=== PATIENT | female | born 1950 ===

== ENCOUNTER 2022-10-27 14:10 | Inpatient (IN) | payer MEDICARE, BC ==
[~2022-10-27] VITALS: Ht 172.7 cm; Wt 96.8 kg
[2022-10-27 20:30] VITALS: BP 105/42
--- NOTE | 2022-10-27 21:10 | NUR ---
Received pt via josep assisted by 2 filling separator. Alert and oriented x4. On 3LPM via nasal cannula sating at 93%. Has right hip incision covered with dressing. Dressing changed, noted incision to be dry with some bruising. No complaints of pain as of this time. Pt received Dilaudid right before leaving [facility]. Routine admission care done. Plan of care initiated. VS taken and recorded. Safety measures and fall prevention initiated.
[2022-10-27] MEDS ORDERED: LEVO125T PO (22:14)
[2022-10-27] MEDS ORDERED: RANO500T6 PO (22:14)
[2022-10-27] MEDS ORDERED: ALBU2.5V38 IH (22:14)
[2022-10-27] MEDS ORDERED: SENN-18 PO (22:14)
[2022-10-27] MEDS ORDERED: IPRA0.2S48 NEB (22:14)
[2022-10-27] MEDS ORDERED: ATOR80TA PO (22:14)
[2022-10-27] MEDS ORDERED: ENOX40DI SQ (22:14)
[2022-10-27] MEDS ORDERED: LISI40TA13 PO (22:14)
[2022-10-27] MEDS ORDERED: AMLO10TA59 PO (22:14)
[2022-10-27] MEDS ORDERED: ACET325T53 PO (22:14)
[2022-10-27] MEDS ORDERED: BISA10SU61 RC (22:14)
[2022-10-27] MEDS ORDERED: METO200T49 PO (22:14)
[2022-10-27] MEDS ORDERED: VENL150C2 PO (22:14)
[2022-10-27] MEDS ORDERED: SERT25TA PO (22:14)
[2022-10-27] MEDS ORDERED: MAGN400O6 PO (22:14)
[2022-10-27] MEDS ORDERED: DOCU-141 PO (22:14)
[2022-10-27] MEDS ORDERED: HYDR25TA4 PO (22:14)
[2022-10-27] MEDS ORDERED: MAGNESIUM HYDROXIDE 30 ML LIQUID UDC PO PRN (22:45)
[2022-10-27] MEDS ORDERED: SENNOSIDES 1 TABLET PO PRN (22:45)
[2022-10-27] MEDS ORDERED: ACETAMINOPHEN 325 MG TABLET-SA PATIENTS-PAIN ONLY PO PRN (22:45)
[2022-10-27] MEDS ORDERED: ALBUTEROL SULFATE 2.5 MG/3 ML NEBU IH PRN (22:45)
[2022-10-27] MEDS: IPRATROPIUM BROMIDE 0.5 MG/2.5 ML NEBU NEB SCH (23:28)
[2022-10-28] MEDS: IPRATROPIUM BROMIDE 0.5 MG/2.5 ML NEBU NEB SCH (03:37)
[2022-10-28 05:11] VITALS: BP 106/51
[2022-10-28] MEDS: HYDROCODONE/APAP 5-325MG TABLET PO PRN ×2 (05:11→13:59)
[2022-10-28 06:16] LABS: HEMATOCRIT 30.7 % (31.2-41.9); MEAN CORPUSCULAR VOLUME 93.5 fL (75.5-95.3); PLATELET COUNT (AUTO) 213 K/uL (179-408)
[2022-10-28 06:31] LABS: CREATININE 0.7 mg/dL (0.6-1.3); MAGNESIUM 1.8 mg/dL (1.8-2.4); PHOSPHOROUS 4.3 mg/dL (2.5-4.9); POTASSIUM 3.9 mmol/L (3.5-5.1)
[2022-10-28] MEDS: LEVOTHYROXINE SODIUM 125 MCG TABLET PO SCH (07:31)
[2022-10-28 07:56] VITALS: BP 107/54
[2022-10-28] MEDS ORDERED: IPRATROPIUM BROMIDE 0.5 MG/2.5 ML NEBU NEB PRN (08:00)
[2022-10-28] MEDS: LISINOPRIL 20 MG TABLET PO SCH (08:24)
[2022-10-28] MEDS: SERTRALINE HCL 50 MG TABLET PO SCH (08:24)
[2022-10-28] MEDS: RANOLAZINE 500 MG TAB.ER.12H PO SCH ×2 (08:24→16:34)
[2022-10-28] MEDS: METOPROLOL SUCCINATE XL 50 MG TAB.SR.24H PO SCH (08:25)
[2022-10-28] MEDS: HYDROCHLOROTHIAZIDE 25 MG TABLET PO SCH (08:25)
[2022-10-28] MEDS: REMEDY ESSENTIAL ZINC PASTE 113 GM TOP SCH ×2 (08:26→20:27)
[2022-10-28] MEDS: ENOXAPARIN SODIUM 40 MG/0.4 ML DISP.SYRIN SQ SCH (08:28)
[2022-10-28] MEDS: AMLODIPINE 10 MG TABLET PO SCH (08:32)
[2022-10-28] MEDS: HYDROMORPHONE 1 MG/1 ML DISP.SYRIN IV PRN ×3 (08:58→20:23)
[2022-10-28] MEDS ORDERED: VENLAFAXINE XR 150 MG CAP.SR.24H PO SCH (09:00)
[2022-10-28] MEDS ORDERED: ISOS30TA86 PO (10:17)
[2022-10-28] MEDS ORDERED: ASPI81TA31 PO (10:17)
[2022-10-28] MEDS ORDERED: FLUT1BLS IH (10:17)
[2022-10-28] MEDS ORDERED: METF-442 PO (10:22)
[2022-10-28] MEDS ORDERED: VENL75CA62 PO (10:24)
[2022-10-28] MEDS: VENLAFAXINE XR 150 MG CAP.SR.24H PO SCH (15:05)
--- NOTE | 2022-10-28 15:17 | NUR ---
0730-Upon shift exchange round, patient in bed, oxygen via nc, no respiratory distress/SOB, awake; A/Ox4. Patient verbally communicative/follows directions. Pure-Week device in place. Encouraged patient to use call light for help. 0900-Scheduled medications administered with no ASE noted; fresh ice water pitcher provided. Call light at reach.
--- NOTE | 2022-10-28 15:55 | NUR ---
1245-Routine rounds done and diaper changed, perineal care provided; handled patient gently and carefully. Abductor pillow in place. RT hip surgical site with DD in place. Repositioned patient to promote comfort and facilitate pressure relief. Patient tolerated well procedure. Call light at reach, encouraged to use it for help every time needed.
[2022-10-28 16:33] VITALS: BP 128/66
--- NOTE | 2022-10-28 17:58 | NUR ---
1600-Routine rounds done, (along with SNUFF PACKING MACHINE OPERATOR) patient bypassed pure-week and with wet, care provided (daughter at bedside) handled patient gently and carefully during care. Treatment to right hip ORIF surgical site done, affected area with no s/s of infection or active bleeding noted. Patient tolerated well procedure, repositioned for comfort and pressure relief, abductor pillow in place. Pure-week device repositioned properly/functioning properly. Both patient and daughter sounded very appreciative with the care, stating "thank you so much" several times. Call light at reach. Encouraged patient to use it every time help is needed. 1630-Opened a new IV line to LT hand G 22" due to current IV to RT AC not functioning properly. Procedure explained prior insertion. Aseptic tech. applied, patient jaimee. well. with no c/o pain. IV line flushed well and secured with clear tape. (daughter at bedside) polite as she expresses "thanks" to nursing staff repetitively.
[2022-10-28 20:00] VITALS: BP 127/66
[2022-10-28] MEDS: ATORVASTATIN 40 MG TABLET PO SCH (20:26)
[2022-10-28] MEDS ORDERED: BISACODYL 10 MG SUPP.RECT RC PRN (21:00)
[2022-10-28] MEDS ORDERED: BISACODYL 10 MG SUPP.RECT RC SCH (21:00)
[2022-10-29] MEDS: HYDROMORPHONE 1 MG/1 ML DISP.SYRIN IV PRN ×3 (01:32→13:40)
[2022-10-29 04:00] VITALS: BP 145/64
--- NOTE | 2022-10-29 04:54 | NUR ---
AAOx4 S/P right ORIF right hip. Right hip dressing intact with sutures in placed. Pain meds given via left arm heplock. Relief noted. All needs attended. Kept comfotable. Purewick to suction, anne colored urine noted. Will monitor patient. Abduction pillow in placed. VSS.
[2022-10-29] MEDS: LEVOTHYROXINE SODIUM 125 MCG TABLET PO SCH (06:21)
[2022-10-29 07:39] VITALS: BP 133/59
[2022-10-29] MEDS: HYDROCHLOROTHIAZIDE 25 MG TABLET PO SCH (08:50)
[2022-10-29] MEDS: LISINOPRIL 20 MG TABLET PO SCH (08:50)
[2022-10-29] MEDS: METOPROLOL SUCCINATE XL 50 MG TAB.SR.24H PO SCH (08:50)
[2022-10-29] MEDS: SERTRALINE HCL 50 MG TABLET PO SCH (08:51)
[2022-10-29] MEDS: AMLODIPINE 10 MG TABLET PO SCH (08:51)
[2022-10-29] MEDS: ENOXAPARIN SODIUM 40 MG/0.4 ML DISP.SYRIN SQ SCH (08:58)
[2022-10-29] MEDS: VENLAFAXINE XR 150 MG CAP.SR.24H PO SCH (08:59)
[2022-10-29] MEDS: GLUCERNA SHAKE 237 ML CAN PO SCH ×2 (09:00→09:04)
[2022-10-29] MEDS: REMEDY ESSENTIAL ZINC PASTE 113 GM TOP SCH ×2 (09:04→20:02)
[2022-10-29] MEDS: RANOLAZINE 500 MG TAB.ER.12H PO SCH ×2 (09:04→16:03)
[2022-10-29 16:00] VITALS: BP 107/59
[2022-10-29] MEDS: HYDROCODONE/APAP 5-325MG TABLET PO PRN (19:19)
[2022-10-29] MEDS: ATORVASTATIN 40 MG TABLET PO SCH (20:02)
[2022-10-29 20:33] VITALS: BP 122/52
[2022-10-30 04:20] VITALS: BP 130/66
[2022-10-30] MEDS: HYDROCODONE/APAP 5-325MG TABLET PO PRN ×2 (04:47→20:47)
--- NOTE | 2022-10-30 04:51 | NUR ---
patient is alert, oriented x3, with episodes of forgetful, no sob, respirations are even nonlabored, skin warm and dry to touch, this telegraphic typewriter operator had a conversation with patient and daughter at bedside about IV push Dilaudid that dr cervantes changed the orders from IV push Dilaudid to po oxy ir and norco break through pain. patient and daughter agreed. patient requested norco after dinner, administered, and requested to be given at 0130 as well. checked on patient at 0130, patient was sound asleep that time. patient woke up around 0430 and requested pain medication, Effie administered. patient stated she wants to talk to doctor whoever changed her pain medication, will endorse to next shift.
[2022-10-30] MEDS: LEVOTHYROXINE SODIUM 125 MCG TABLET PO SCH (06:04)
[2022-10-30 08:30] VITALS: BP 137/78
[2022-10-30] MEDS: REMEDY ESSENTIAL ZINC PASTE 113 GM TOP SCH ×2 (09:00→20:56)
[2022-10-30] MEDS: VENLAFAXINE XR 150 MG CAP.SR.24H PO SCH (09:59)
[2022-10-30] MEDS: AMLODIPINE 10 MG TABLET PO SCH (10:00)
[2022-10-30] MEDS: METOPROLOL SUCCINATE XL 50 MG TAB.SR.24H PO SCH (10:00)
[2022-10-30] MEDS: LISINOPRIL 20 MG TABLET PO SCH (10:01)
[2022-10-30] MEDS: HYDROCHLOROTHIAZIDE 25 MG TABLET PO SCH (10:02)
[2022-10-30] MEDS: OXYCODONE HCL 5 MG TABLET PO SCH ×2 (10:02→17:52)
[2022-10-30] MEDS: SERTRALINE HCL 50 MG TABLET PO SCH (10:03)
[2022-10-30] MEDS: RANOLAZINE 500 MG TAB.ER.12H PO SCH ×2 (10:04→17:53)
[2022-10-30] MEDS: ENOXAPARIN SODIUM 40 MG/0.4 ML DISP.SYRIN SQ SCH (10:18)
--- NOTE | 2022-10-30 14:49 | NUR ---
INDIVIDUALIZED PLAN OF CARE
[2022-10-30 15:51] VITALS: BP 92/45
--- NOTE | 2022-10-30 19:13 | NUR ---
Pt received asleep in bed no distress and when awakes able to eat meals work with therapy and ambulate around the hallway. Pt had a shower today rt hip dressing done. Pt did not requested break through PRN medication.Pt verbalized that she think the night nurse did not gave her, her right pain medication dose. Continue monitoring her condition. Pt's daughter visited and update with plan of care. Endorse care to incoming nurse
[2022-10-30] MEDS: ATORVASTATIN 40 MG TABLET PO SCH (20:41)
[2022-10-31 04:00] VITALS: BP 108/57
[2022-10-31] MEDS: LEVOTHYROXINE SODIUM 125 MCG TABLET PO SCH (06:33)
[2022-10-31] MEDS: HYDROCODONE/APAP 5-325MG TABLET PO PRN (06:39)
[2022-10-31 08:10] VITALS: BP 123/66
[2022-10-31] MEDS: RANOLAZINE 500 MG TAB.ER.12H PO SCH ×2 (09:29→17:41)
[2022-10-31] MEDS: OXYCODONE HCL 5 MG TABLET PO SCH (09:30)
[2022-10-31] MEDS: METOPROLOL SUCCINATE XL 50 MG TAB.SR.24H PO SCH (09:31)
[2022-10-31] MEDS: HYDROCHLOROTHIAZIDE 25 MG TABLET PO SCH (09:31)
[2022-10-31] MEDS: GLUCERNA SHAKE 237 ML CAN PO SCH (09:32)
[2022-10-31] MEDS: AMLODIPINE 10 MG TABLET PO SCH (09:33)
[2022-10-31] MEDS: LISINOPRIL 20 MG TABLET PO SCH (09:33)
[2022-10-31] MEDS: VENLAFAXINE XR 150 MG CAP.SR.24H PO SCH (09:33)
[2022-10-31] MEDS: SERTRALINE HCL 50 MG TABLET PO SCH (09:41)
[2022-10-31] MEDS: ENOXAPARIN SODIUM 40 MG/0.4 ML DISP.SYRIN SQ SCH (09:41)
[2022-10-31] MEDS: REMEDY ESSENTIAL ZINC PASTE 113 GM TOP SCH ×2 (09:42→20:33)
[2022-10-31 15:12] VITALS: BP 112/61
--- NOTE | 2022-10-31 15:50 | NUR ---
Pt c/o constipation. Lest BM noted on 10/29. Offered pt prune juice. Pt accepted. Will continue to monitor and endorse.
[2022-10-31] MEDS: OXYCODONE HCL 20 MG TAB.SR.12H PO SCH (18:00)
[2022-10-31 20:00] VITALS: BP 113/53
[2022-10-31] MEDS: DOCUSATE SODIUM 100 MG CAPSULE PO PRN (20:51)
[2022-10-31] MEDS: ATORVASTATIN 40 MG TABLET PO SCH (20:51)
[2022-10-31] MEDS: HYDROCODONE/APAP 10-325 MG TABLET PO PRN (20:52)
[2022-11-01 04:00] VITALS: BP 107/55
[2022-11-01] MEDS: ACETAMINOPHEN 325 MG TABLET PO PRN (04:34)
[2022-11-01] MEDS: LEVOTHYROXINE SODIUM 125 MCG TABLET PO SCH (06:06)
--- NOTE | 2022-11-01 07:46 | NUR ---
RN NOTE: Pt was given [place] and [place] at bedtime after verbalizing constipation and pain to rt hip. Pt slept through most of the night. Pt requested Tylenol this AM. Endorse care to incoming nurse
[2022-11-01 07:50] VITALS: BP 110/53
[2022-11-01] MEDS: OXYCODONE HCL 20 MG TAB.SR.12H PO SCH ×2 (08:18→16:46)
[2022-11-01] MEDS: RANOLAZINE 500 MG TAB.ER.12H PO SCH ×2 (08:18→16:46)
[2022-11-01] MEDS: DOCUSATE SODIUM 100 MG CAPSULE PO PRN (08:18)
[2022-11-01] MEDS: SERTRALINE HCL 50 MG TABLET PO SCH (08:19)
[2022-11-01] MEDS: LISINOPRIL 20 MG TABLET PO SCH (08:19)
[2022-11-01] MEDS: METOPROLOL SUCCINATE XL 50 MG TAB.SR.24H PO SCH (08:19)
[2022-11-01] MEDS: HYDROCHLOROTHIAZIDE 25 MG TABLET PO SCH (08:20)
[2022-11-01] MEDS: AMLODIPINE 10 MG TABLET PO SCH (08:20)
[2022-11-01] MEDS: GLUCERNA SHAKE 237 ML CAN PO SCH (08:21)
[2022-11-01] MEDS: VENLAFAXINE XR 150 MG CAP.SR.24H PO SCH (08:22)
[2022-11-01] MEDS: REMEDY ESSENTIAL ZINC PASTE 113 GM TOP SCH ×2 (08:22→21:12)
[2022-11-01] MEDS: ENOXAPARIN SODIUM 40 MG/0.4 ML DISP.SYRIN SQ SCH (08:28)
[2022-11-01 15:11] VITALS: BP 121/83
--- NOTE | 2022-11-01 18:24 | NUR ---
patient is alert, awake, forgetfull, no sob, respirations are even nonlabored, skin warm and dry to touch, pain is well managed with pain medications, no events noted.
[2022-11-01 20:00] VITALS: BP 107/54
[2022-11-01] MEDS: ATORVASTATIN 40 MG TABLET PO SCH (21:12)
[2022-11-02] MEDS: HYDROCODONE/APAP 10-325 MG TABLET PO PRN (01:44)
--- NOTE | 2022-11-02 03:53 | NUR ---
AAOx3-4 forgetful at times. Patient S/P right total hip arthroplasty. Right incision intact with dressing in placed. Medicated for pain as needed. Ambulates to the BR with walker with supervision. Continent of bowel and bladder. No BM noted this shift. Fall precautions maintained. Siderails up for safety. Will monitor patient. On 3L via nasal cannula. pulse ox 95%. Compliant with meds.VSS.
[2022-11-02 04:00] VITALS: BP 115/61
[2022-11-02] MEDS: LEVOTHYROXINE SODIUM 125 MCG TABLET PO SCH (06:19)
[2022-11-02 07:41] LABS: HEMATOCRIT 31.1 % (31.2-41.9); MEAN CORPUSCULAR HEMOGLOBIN 31.7 uug (24.7-32.8); MEAN CORPUSCULAR VOLUME 93.9 fL (75.5-95.3); PLATELET COUNT (AUTO) 437 K/uL (179-408)
[2022-11-02 07:52] VITALS: BP 135/62
[2022-11-02 08:43] LABS: THYROID STIMULATING HORMONE 3.233 mIU/mL (0.358-3.740)
[2022-11-02] MEDS: METOPROLOL SUCCINATE XL 50 MG TAB.SR.24H PO SCH (09:30)
[2022-11-02] MEDS: GLUCERNA SHAKE 237 ML CAN PO SCH (09:31)
[2022-11-02] MEDS: RANOLAZINE 500 MG TAB.ER.12H PO SCH ×2 (09:31→17:24)
[2022-11-02] MEDS: SERTRALINE HCL 50 MG TABLET PO SCH (09:31)
[2022-11-02] MEDS: AMLODIPINE 10 MG TABLET PO SCH (09:31)
[2022-11-02] MEDS: HYDROCHLOROTHIAZIDE 25 MG TABLET PO SCH (09:31)
[2022-11-02] MEDS: LISINOPRIL 20 MG TABLET PO SCH (09:32)
[2022-11-02] MEDS: ENOXAPARIN SODIUM 40 MG/0.4 ML DISP.SYRIN SQ SCH (09:33)
[2022-11-02] MEDS: REMEDY ESSENTIAL ZINC PASTE 113 GM TOP SCH ×2 (09:34→20:50)
[2022-11-02] MEDS: VENLAFAXINE XR 150 MG CAP.SR.24H PO SCH (09:37)
[2022-11-02] MEDS: OXYCODONE HCL 20 MG TAB.SR.12H PO SCH ×2 (09:44→17:30)
[2022-11-02 10:39] LABS: IRON, SERUM 35 ug/dL (50-175)
[2022-11-02 11:02] LABS: ALANINE AMINOTRANSFERASE 47 U/L (14-59); ALKALINE PHOSPHATASE 89 U/L (50-136); ASPARTATE AMINOTRANSFERASE 18 U/L (15-37); BILIRUBIN,TOTAL 0.7 mg/dL (0.2-1.0); CARBON DIOXIDE 31 mmol/L (21-32); CHLORIDE 100 mmol/L (98-107); CHOLESTEROL 148 mg/dL (<200); CREATININE 0.7 mg/dL (0.6-1.3); GLUCOSE 108 mg/dL (74-106); PHOSPHOROUS 4.6 mg/dL (2.5-4.9); POTASSIUM 4.1 mmol/L (3.5-5.1); TOTAL PROTEIN, SERUM 6.3 g/dL (6.4-8.2); TRIGLYCERIDES 110 MG/DL (30-150); UREA NITROGEN, BLOOD 12 mg/dL (7-18)
[2022-11-02 12:19] LABS: HDL CHOLESTEROL 36 mg/dL (40-60)
--- NOTE | 2022-11-02 14:35 | NUR ---
INTERDISCIPLINARY TEAM CONFERENCE
--- NOTE | 2022-11-02 14:37 | NUR ---
INTERDISCIPLINARY TEAM CONFERENCE
[2022-11-02 15:50] VITALS: BP 96/46
[2022-11-02 19:59] VITALS: BP 100/53
[2022-11-02] MEDS: ATORVASTATIN 40 MG TABLET PO SCH (20:49)
[2022-11-03 04:49] VITALS: BP 112/56
--- NOTE | 2022-11-03 04:59 | NUR ---
Condition unchanged. AAOx4 All needs attended. Fall risk noted. All due meds given Will monitor patient. Medicated for pain as needed with relief noted. VSS On 3 L via nasal cannula, pulse ox 95% No SOB nor any respiratory distress noted. Kept comfortable.
[2022-11-03] MEDS: HYDROCODONE/APAP 10-325 MG TABLET PO PRN (05:23)
[2022-11-03] MEDS: LEVOTHYROXINE SODIUM 125 MCG TABLET PO SCH (06:06)
[2022-11-03 08:00] VITALS: BP 104/61
[2022-11-03] MEDS: LISINOPRIL 20 MG TABLET PO SCH (08:22)
[2022-11-03] MEDS: OXYCODONE HCL 20 MG TAB.SR.12H PO SCH ×2 (08:23→16:47)
[2022-11-03] MEDS: METOPROLOL SUCCINATE XL 50 MG TAB.SR.24H PO SCH (08:23)
[2022-11-03] MEDS: SERTRALINE HCL 50 MG TABLET PO SCH (08:23)
[2022-11-03] MEDS: RANOLAZINE 500 MG TAB.ER.12H PO SCH ×2 (08:23→16:47)
[2022-11-03] MEDS: HYDROCHLOROTHIAZIDE 25 MG TABLET PO SCH (08:23)
[2022-11-03] MEDS: AMLODIPINE 10 MG TABLET PO SCH (08:23)
[2022-11-03] MEDS: REMEDY ESSENTIAL ZINC PASTE 113 GM TOP SCH ×2 (08:24→20:24)
[2022-11-03] MEDS: ENOXAPARIN SODIUM 40 MG/0.4 ML DISP.SYRIN SQ SCH (08:24)
[2022-11-03] MEDS: VENLAFAXINE XR 150 MG CAP.SR.24H PO SCH (08:31)
[2022-11-03] MEDS: GLUCERNA SHAKE 237 ML CAN PO SCH (09:01)
[2022-11-03] MEDS: CYANOCOBALAMIN 1000 MCG/ML VIAL IM SCH (09:51)
--- NOTE | 2022-11-03 10:19 | NUR ---
dressing change per md orders,no discharge noted
[2022-11-03] MEDS: levoFLOXacin 500 MG TABLET PO SCH (15:26)
[2022-11-03] MEDS: FLUTICASONE/VILANTEROL 1 EACH BLST.W.DEV INH SCH (15:32)
[2022-11-03 15:40] VITALS: BP 117/59
[2022-11-03 20:00] VITALS: BP 109/54
[2022-11-03] MEDS: ATORVASTATIN 40 MG TABLET PO SCH (20:24)
[2022-11-04] MEDS: HYDROCODONE/APAP 10-325 MG TABLET PO PRN (01:09)
[2022-11-04 04:00] VITALS: BP 127/55
--- NOTE | 2022-11-04 04:40 | NUR ---
Awake alert and oriented x4. All needs attended and met. No acute distress noted. Will monitor patient. Kept comfortable. VSS. Ambulates to the BR with walker. Continent of bowel and bladder. No further complaints presented during the shift.
[2022-11-04] MEDS: LEVOTHYROXINE SODIUM 125 MCG TABLET PO SCH (06:08)
[2022-11-04 07:46] VITALS: BP 144/78
[2022-11-04] MEDS: FLUTICASONE/VILANTEROL 1 EACH BLST.W.DEV INH SCH (08:25)
[2022-11-04] MEDS: VENLAFAXINE XR 150 MG CAP.SR.24H PO SCH (08:25)
[2022-11-04] MEDS: LISINOPRIL 20 MG TABLET PO SCH (08:25)
[2022-11-04] MEDS: CYANOCOBALAMIN 1000 MCG/ML VIAL IM SCH (08:25)
[2022-11-04] MEDS: SERTRALINE HCL 50 MG TABLET PO SCH (08:25)
[2022-11-04] MEDS: METOPROLOL SUCCINATE XL 50 MG TAB.SR.24H PO SCH (08:25)
[2022-11-04] MEDS: RANOLAZINE 500 MG TAB.ER.12H PO SCH ×2 (08:25→16:16)
[2022-11-04] MEDS: HYDROCHLOROTHIAZIDE 25 MG TABLET PO SCH (08:26)
[2022-11-04] MEDS: OXYCODONE HCL 20 MG TAB.SR.12H PO SCH ×2 (08:26→16:16)
[2022-11-04] MEDS: AMLODIPINE 10 MG TABLET PO SCH (08:26)
[2022-11-04] MEDS: REMEDY ESSENTIAL ZINC PASTE 113 GM TOP SCH ×2 (08:27→20:23)
[2022-11-04] MEDS: ENOXAPARIN SODIUM 40 MG/0.4 ML DISP.SYRIN SQ SCH (08:27)
[2022-11-04] MEDS: GLUCERNA SHAKE 237 ML CAN PO SCH (08:33)
[2022-11-04] MEDS: levoFLOXacin 500 MG TABLET PO SCH (14:04)
[2022-11-04 16:16] VITALS: BP 108/72
[2022-11-04 20:15] VITALS: BP 112/40
[2022-11-04] MEDS: ATORVASTATIN 40 MG TABLET PO SCH (20:23)
[2022-11-05 04:20] VITALS: BP 119/75
[2022-11-05] MEDS: LEVOTHYROXINE SODIUM 125 MCG TABLET PO SCH (05:48)
--- NOTE | 2022-11-05 06:22 | NUR ---
Uneventful night. Slept good, no complaint of pain/discomforts presented. All needs attended and met. Vs stable. Continue current rehab plan of care.
--- NOTE | 2022-11-05 06:53 | NUR ---
patient in her room, awake at this time with no S/S of discomforts noted, fall and safety precautions implemented. will continue to monitor. call light with in reach
[2022-11-05 08:07] VITALS: BP 144/60
[2022-11-05] MEDS: CYANOCOBALAMIN 1000 MCG/ML VIAL IM SCH (08:12)
[2022-11-05] MEDS: METOPROLOL SUCCINATE XL 50 MG TAB.SR.24H PO SCH (08:13)
[2022-11-05] MEDS: RANOLAZINE 500 MG TAB.ER.12H PO SCH ×2 (08:13→16:23)
[2022-11-05] MEDS: LISINOPRIL 20 MG TABLET PO SCH (08:13)
[2022-11-05] MEDS: SERTRALINE HCL 50 MG TABLET PO SCH (08:13)
[2022-11-05] MEDS: AMLODIPINE 10 MG TABLET PO SCH (08:13)
[2022-11-05] MEDS: VENLAFAXINE XR 150 MG CAP.SR.24H PO SCH (08:13)
[2022-11-05] MEDS: HYDROCHLOROTHIAZIDE 25 MG TABLET PO SCH (08:13)
[2022-11-05] MEDS: ENOXAPARIN SODIUM 40 MG/0.4 ML DISP.SYRIN SQ SCH (08:14)
[2022-11-05] MEDS: OXYCODONE HCL 20 MG TAB.SR.12H PO SCH ×2 (08:14→16:23)
[2022-11-05] MEDS: FLUTICASONE/VILANTEROL 1 EACH BLST.W.DEV INH SCH (08:14)
[2022-11-05] MEDS: GLUCERNA SHAKE 237 ML CAN PO SCH (08:18)
[2022-11-05] MEDS: REMEDY ESSENTIAL ZINC PASTE 113 GM TOP SCH ×2 (08:37→20:11)
[2022-11-05] MEDS: levoFLOXacin 500 MG TABLET PO SCH (14:01)
--- NOTE | 2022-11-05 15:42 | NUR ---
Seen by physical therapist, ambulated using FWW as tolerated
[2022-11-05 16:44] VITALS: BP 103/60
[2022-11-05] MEDS: ATORVASTATIN 40 MG TABLET PO SCH (20:11)
[2022-11-05 20:25] VITALS: BP 125/65
[2022-11-06] MEDS: HYDROCODONE/APAP 10-325 MG TABLET PO PRN (02:42)
[2022-11-06 04:20] VITALS: BP 128/57
[2022-11-06] MEDS: LEVOTHYROXINE SODIUM 125 MCG TABLET PO SCH (05:57)
--- NOTE | 2022-11-06 07:05 | NUR ---
patient in her room, lying in bed sleeping at this time with no S/S of discomforts noted, fall and safety precautions implemented. will continue to monitor.
[2022-11-06] MEDS: SERTRALINE HCL 50 MG TABLET PO SCH (08:04)
[2022-11-06] MEDS: HYDROCHLOROTHIAZIDE 25 MG TABLET PO SCH (08:04)
[2022-11-06] MEDS: CYANOCOBALAMIN 1000 MCG/ML VIAL IM SCH (08:04)
[2022-11-06] MEDS: RANOLAZINE 500 MG TAB.ER.12H PO SCH ×2 (08:04→16:42)
[2022-11-06] MEDS: METOPROLOL SUCCINATE XL 50 MG TAB.SR.24H PO SCH (08:05)
[2022-11-06] MEDS: LISINOPRIL 20 MG TABLET PO SCH (08:05)
[2022-11-06] MEDS: AMLODIPINE 10 MG TABLET PO SCH (08:05)
[2022-11-06] MEDS: ENOXAPARIN SODIUM 40 MG/0.4 ML DISP.SYRIN SQ SCH (08:06)
[2022-11-06] MEDS: FLUTICASONE/VILANTEROL 1 EACH BLST.W.DEV INH SCH (08:06)
[2022-11-06] MEDS: VENLAFAXINE XR 150 MG CAP.SR.24H PO SCH (08:06)
[2022-11-06 08:35] VITALS: BP 124/80
[2022-11-06] MEDS: GLUCERNA SHAKE 237 ML CAN PO SCH (09:18)
[2022-11-06] MEDS: REMEDY ESSENTIAL ZINC PASTE 113 GM TOP SCH ×2 (09:18→20:02)
[2022-11-06] MEDS: OXYCODONE HCL 20 MG TAB.SR.12H PO SCH ×2 (09:20→16:28)
[2022-11-06] MEDS: levoFLOXacin 500 MG TABLET PO SCH (14:20)
[2022-11-06 16:04] VITALS: BP 105/53
[2022-11-06] MEDS: ATORVASTATIN 40 MG TABLET PO SCH (20:02)
[2022-11-06 20:34] VITALS: BP 102/48
[2022-11-07 04:34] VITALS: BP 135/68
[2022-11-07] MEDS: LEVOTHYROXINE SODIUM 125 MCG TABLET PO SCH (06:06)
--- NOTE | 2022-11-07 06:14 | NUR ---
No significant event reported all night. No complaint of pain/discomforts. All needs attended and met. Continue current rehab plan of care.
[2022-11-07] MEDS: RANOLAZINE 500 MG TAB.ER.12H PO SCH ×2 (08:21→16:15)
[2022-11-07] MEDS: HYDROCHLOROTHIAZIDE 25 MG TABLET PO SCH (08:21)
[2022-11-07] MEDS: LISINOPRIL 20 MG TABLET PO SCH (08:21)
[2022-11-07] MEDS: VENLAFAXINE XR 150 MG CAP.SR.24H PO SCH (08:22)
[2022-11-07] MEDS: SERTRALINE HCL 50 MG TABLET PO SCH (08:22)
[2022-11-07] MEDS: AMLODIPINE 10 MG TABLET PO SCH (08:22)
[2022-11-07] MEDS: METOPROLOL SUCCINATE XL 50 MG TAB.SR.24H PO SCH (08:22)
[2022-11-07] MEDS: ENOXAPARIN SODIUM 40 MG/0.4 ML DISP.SYRIN SQ SCH (08:23)
[2022-11-07] MEDS: FLUTICASONE/VILANTEROL 1 EACH BLST.W.DEV INH SCH (08:23)
[2022-11-07] MEDS: GLUCERNA SHAKE 237 ML CAN PO SCH (08:23)
[2022-11-07] MEDS: OXYCODONE HCL 20 MG TAB.SR.12H PO SCH ×2 (08:23→16:07)
[2022-11-07] MEDS: REMEDY ESSENTIAL ZINC PASTE 113 GM TOP SCH ×2 (08:24→20:53)
[2022-11-07 08:29] VITALS: BP 133/63
--- NOTE | 2022-11-07 10:00 | NUR ---
Seen by physical therapist, ambulated using FWW as tolerated
[2022-11-07] MEDS: ACETAMINOPHEN 325 MG TABLET PO PRN (10:05)
[2022-11-07] MEDS: levoFLOXacin 500 MG TABLET PO SCH (14:06)
[2022-11-07 15:49] VITALS: BP 117/64
[2022-11-07 20:36] VITALS: BP 105/49
[2022-11-07] MEDS: ATORVASTATIN 40 MG TABLET PO SCH (20:53)
[2022-11-08] MEDS: HYDROCODONE/APAP 10-325 MG TABLET PO PRN ×2 (00:17→23:08)
[2022-11-08 04:05] VITALS: BP 139/65
[2022-11-08] MEDS: LEVOTHYROXINE SODIUM 125 MCG TABLET PO SCH (06:00)
--- NOTE | 2022-11-08 06:29 | NUR ---
Medicated with [place] for pain scale of 6/10 after using the bathroom. No further complaint presented. Slept good after that. Continue current rehab plan of care.
[2022-11-08 07:46] VITALS: BP 109/61
[2022-11-08] MEDS: SERTRALINE HCL 50 MG TABLET PO SCH (08:06)
[2022-11-08] MEDS: FLUTICASONE/VILANTEROL 1 EACH BLST.W.DEV INH SCH (08:06)
[2022-11-08] MEDS: RANOLAZINE 500 MG TAB.ER.12H PO SCH ×2 (08:06→16:15)
[2022-11-08] MEDS: LISINOPRIL 20 MG TABLET PO SCH (08:06)
[2022-11-08] MEDS: OXYCODONE HCL 20 MG TAB.SR.12H PO SCH ×2 (08:06→16:15)
[2022-11-08] MEDS: AMLODIPINE 10 MG TABLET PO SCH (08:07)
[2022-11-08] MEDS: METOPROLOL SUCCINATE XL 50 MG TAB.SR.24H PO SCH (08:07)
[2022-11-08] MEDS: VENLAFAXINE XR 150 MG CAP.SR.24H PO SCH (08:07)
[2022-11-08] MEDS: GLUCERNA SHAKE 237 ML CAN PO SCH (08:07)
[2022-11-08] MEDS: HYDROCHLOROTHIAZIDE 25 MG TABLET PO SCH (08:07)
[2022-11-08] MEDS: ENOXAPARIN SODIUM 40 MG/0.4 ML DISP.SYRIN SQ SCH (08:11)
[2022-11-08] MEDS: REMEDY ESSENTIAL ZINC PASTE 113 GM TOP SCH ×2 (08:12→20:00)
[2022-11-08] MEDS: ACETAMINOPHEN 325 MG TABLET PO PRN (09:27)
--- NOTE | 2022-11-08 09:30 | NUR ---
Seen by physical therapist, ambulated using FWW as tolerated
[2022-11-08] MEDS: levoFLOXacin 500 MG TABLET PO SCH (14:40)
[2022-11-08 15:36] VITALS: BP 100/55
[2022-11-08] MEDS: ATORVASTATIN 40 MG TABLET PO SCH (20:00)
[2022-11-08 20:47] VITALS: BP 115/55
--- NOTE | 2022-11-08 21:16 | NUR ---
in room watching tv no c/o pain noted tahe her medication call light with in reach
--- NOTE | 2022-11-08 23:08 | NUR ---
Medicated with [place] for pain scale of 8/10 . No further complaint presented. call light with in reach
--- NOTE | 2022-11-09 01:54 | NUR ---
Sleeping, appears comfortable
[2022-11-09 04:00] VITALS: BP 110/69
[2022-11-09] MEDS: LEVOTHYROXINE SODIUM 125 MCG TABLET PO SCH (06:01)
--- NOTE | 2022-11-09 06:27 | NUR ---
No significant event reported all night. All needs attended and met. Continue current rehab plan of care.
[2022-11-09 08:00] VITALS: BP 119/67
[2022-11-09] MEDS: ENOXAPARIN SODIUM 40 MG/0.4 ML DISP.SYRIN SQ SCH (09:05)
[2022-11-09] MEDS: LISINOPRIL 20 MG TABLET PO SCH (09:08)
[2022-11-09] MEDS: SERTRALINE HCL 50 MG TABLET PO SCH (09:09)
[2022-11-09] MEDS: METOPROLOL SUCCINATE XL 50 MG TAB.SR.24H PO SCH (09:11)
[2022-11-09] MEDS: AMLODIPINE 10 MG TABLET PO SCH (09:12)
[2022-11-09] MEDS: OXYCODONE HCL 20 MG TAB.SR.12H PO SCH ×2 (09:13→17:27)
[2022-11-09] MEDS: HYDROCHLOROTHIAZIDE 25 MG TABLET PO SCH (09:13)
[2022-11-09] MEDS: VENLAFAXINE XR 150 MG CAP.SR.24H PO SCH (09:14)
[2022-11-09] MEDS: RANOLAZINE 500 MG TAB.ER.12H PO SCH ×2 (09:14→17:27)
[2022-11-09] MEDS: GLUCERNA SHAKE 237 ML CAN PO SCH (09:15)
[2022-11-09] MEDS: FLUTICASONE/VILANTEROL 1 EACH BLST.W.DEV INH SCH (09:16)
[2022-11-09] MEDS: REMEDY ESSENTIAL ZINC PASTE 113 GM TOP SCH ×2 (09:28→20:24)
--- NOTE | 2022-11-09 11:21 | NUR ---
INTERDISCIPLINARY TEAM CONFERENCE
[2022-11-09] MEDS: levoFLOXacin 500 MG TABLET PO SCH (14:54)
[2022-11-09 16:00] VITALS: BP 107/55
[2022-11-09 19:41] VITALS: BP 107/48
--- NOTE | 2022-11-09 19:51 | NUR ---
RECEIVED REPORT FROM [facility] SADDLE TREE STITCHER. PATIENT IS ALERT AND ORIENTED X4 AND SPEAKS CROATIAN. VITAL SIGNS STABLE. PATIENT TOLERATES PO MEDICATIONS AND DIET WELL. PATIENT HAD COMPLAINT OF PAIN. RN GAVE MEDICATIONS ORDERED. PATIENT EXPRESSES RELIEF. PATIENT PARTICIPATES WITH PHYSICAL AND OCCUPATIONAL THERAPY SCHEDULED. MD REQUEST RN TO REMOVE DRESSING. DRESSING OPEN TO AIR. PATIENT'S FAMILY VISITED. NO ACUTE DISTRESS NOTED. CALL LIGHT WITHIN REACH. FALL PRECAUTIONS OBSERVED. RN ENDORSED CARE TO [facility] N[facility] FOR CONTINUATION OF CARE.
[2022-11-09] MEDS: ATORVASTATIN 40 MG TABLET PO SCH (20:03)
--- NOTE | 2022-11-09 23:29 | NUR ---
Sleeping, appears comfortable
[2022-11-10 04:17] VITALS: BP 97/56
[2022-11-10] MEDS: LEVOTHYROXINE SODIUM 125 MCG TABLET PO SCH (06:02)
--- NOTE | 2022-11-10 06:16 | NUR ---
No significant event reported all night. All needs attended and met. Continue current rehab plan of care.
[2022-11-10 08:00] VITALS: BP 114/64
[2022-11-10] MEDS: FLUTICASONE/VILANTEROL 1 EACH BLST.W.DEV INH SCH (09:00)
[2022-11-10] MEDS: REMEDY ESSENTIAL ZINC PASTE 113 GM TOP SCH (09:00)
[2022-11-10] MEDS: AMLODIPINE 10 MG TABLET PO SCH (09:00)
[2022-11-10] MEDS: GLUCERNA SHAKE 237 ML CAN PO SCH (09:00)
[2022-11-10] MEDS: VENLAFAXINE XR 150 MG CAP.SR.24H PO SCH (09:17)
[2022-11-10] MEDS: RANOLAZINE 500 MG TAB.ER.12H PO SCH (09:18)
[2022-11-10] MEDS: METOPROLOL SUCCINATE XL 50 MG TAB.SR.24H PO SCH (09:18)
[2022-11-10] MEDS: SERTRALINE HCL 50 MG TABLET PO SCH (09:19)
[2022-11-10] MEDS: HYDROCHLOROTHIAZIDE 25 MG TABLET PO SCH (09:21)
[2022-11-10 09:24] VITALS: BP 114/64
[2022-11-10] MEDS: LISINOPRIL 20 MG TABLET PO SCH (09:24)
[2022-11-10] MEDS: ENOXAPARIN SODIUM 40 MG/0.4 ML DISP.SYRIN SQ SCH (09:26)
[2022-11-10] MEDS: HYDROCODONE/APAP 10-325 MG TABLET PO PRN (10:04)
--- NOTE | 2022-11-10 15:45 | NUR ---
PT DISCHARGED via gurney accompanied by [employer] professor of biblical studies. VSS, O2 Sat 97% on RA, no s/s of distress noted. All discharge questions answered and material provided, including VS records from entire visit.
== END 2022-11-10 15:45 | disposition home health service (06) | DRG 560 ==
PROVIDERS: ADMIT Physical Medicine & Rehabilitation Pain Medicine; ATTEND Physical Medicine & Rehabilitation Pain Medicine
DX: S72.011D Unspecified intracapsular fracture of right femur, subsequent encounter for closed fracture with routine healing (principal); D68.59 Other primary thrombophilia; E11.9 Type 2 diabetes mellitus without complications; G47.33 Obstructive sleep apnea (adult) (pediatric); I11.0 Hypertensive heart disease with heart failure; I25.10 Atherosclerotic heart disease of native coronary artery without angina pectoris; I50.9 Heart failure, unspecified; J44.9 Chronic obstructive pulmonary disease, unspecified; Z95.5 Presence of coronary angioplasty implant and graft; Z85.850 Personal history of malignant neoplasm of thyroid; D72.829 Elevated white blood cell count, unspecified; E53.8 Deficiency of other specified B group vitamins; E66.9 Obesity, unspecified; Z68.29 Body mass index [BMI] 29.0-29.9, adult; F17.210 Nicotine dependence, cigarettes, uncomplicated; W18.30XD Fall on same level, unspecified, subsequent encounter; R00.1 Bradycardia, unspecified
CPT/HCPCS: 36415; 71045; 73501; 83550; 83735; 84100; 84443; 85025; 94640; 94664; 97535-GO-CO; A4663; J1170; J1650; J3420; J3590